=== PATIENT | male | born 1980 | race Caucasian/White ===

== ENCOUNTER 2024-12-25 22:57 | Emergency (ER) | payer OTHER, SELFPAY ==
[2024-12-25 22:59] VITALS: BP 156/110
--- NOTE | 2024-12-26 00:49 | ED.GENMED ---
History of Present Illness
General
Chief Complaint: Musculo-Skeletal Complaint
Time Seen by Provider: 12/26/24 00:49
History of Present Illness
History of Present Illness:
TIME OF INITIAL ENCOUNTER: 12:55 AM
HPI: Patient presents due to concerns of having a gout flare involving the right great toe. He is already on allopurinol is taken indomethacin as well as Tylenol. He he called his office services representative and was able to make an appointment and the plan is for
him to have a steroid injection in the morning.
EXAM
GENERAL: Well appearing in no distress
HEENT: Moist oral mucosa
NEUROLOGIC: Excellent strength all extremities, no obvious coordination deficits
PSYCHIATRIC: Appropriate mental status, normal insight and judgement
EXTREMITIES: Nontender, no edema, moves all extremities equally see below
SKIN: Some faint erythema noted to the right first MTP joint with moderate to severe tenderness, no significant warmth, no calf tenderness
NUMBER AND COMPLEXITY OF PROBLEMS ADDRESSED AT THE ENCOUNTER
� Chronic conditions affecting care: High blood pressure, gout
� Acute Exacerbation and/or Progression of Chronic Illness: This is an acute problem
� Differential Diagnosis includes: Gout, cellulitis, doubt infected joint, osteoarthritis
AMOUNT AND/OR COMPLEXITY OF DATA TO BE REVIEWED AND ANALYZED
� I performed an independent evaluation of and my interpretation is:
EKG:
CT:
X-rays:
Laboratory Studies:
Other:
� Review of other/old records: No old records available for review in [facility]
� Clinical information was obtained by an independent historian: Spoke to at bedside
� Prescriptions/Medications Considered but not given: Considered intra-articular steroid with lidocaine however the patient prefers to wait for his office services representative. I also considered and offered oral steroid but ultimately we decided
on Toradol.
� Further testing considered but not performed:
RISK OF COMPLICATIONS AND/OR MORBIDITY OR MORTALITY OF PATIENT MANAGEMENT
� Social determinants of health affecting care: Lives at home
� Discussion with other providers:
� Escalation of care including admission/observation vs risk of discharge considered: Patient was given Toradol and narcotic analgesia to help with the pain and he will see his office services representative in 7 hours.
ANY OTHER UPDATES:
Phy Exam
Physical Exam
Physical Exam:
See HPI
Course
Orders/Labs/Results
Orders:
Orders
12/26/24 01:02
Ketorolac [Toradol] 30 mg IM NOW STA
Oxycodone/Acetaminophen [Percocet 5/325] 2 tablet PO NOW STA
Vital Signs
Initial and Last Documented VS:
Initial Vital Signs
Temp Pulse Resp BP Pulse Ox
37.1 C 82 16 156/110 98
12/25/24 22:59 12/25/24 22:59 12/25/24 22:59 12/25/24 22:59 12/25/24 22:59
Last Documented Vital Signs
Temp Pulse Resp BP Pulse Ox
37.1 C 82 16 156/110 98
12/25/24 22:59 12/25/24 22:59 12/25/24 22:59 12/25/24 22:59 12/25/24 22:59
*Critical Care Note
Total Time (30-74mins, 75-104mins- exclusive of procedures): Not Applicable
ED Attending Note
-
Portions of this chart may have been created with voice recognition software.� Occasional wrong word or��sound alike� substitutions may have occurred due to the inherent limitations of voice recognition software.
Discharge Plan
Departure
Patient Disposition: Home (Routine Discharge)
Date of Disposition: 12/26/24
Time of Disposition: 01:03
Patient with high blood pressure during this ER visit?: Yes
Discharge Problem:
Gout attack
Instructions: Gout ED, BLOOD PRESSURE
Prescriptions:
New
oxycodone-acetaminophen [Percocet] 5-325 mg tablet
1 - 2 tab PO Q6HPRN PRN (Reason: pain) Qty: 10 0RF
Activity Restrictions/Additional Instructions:
We gave a shot of Toradol and some Percocet. Do not drive while on Percocet. If you continue to Percocet, take some the like MiraLAX to prevent constipation. Follow-up with your office services representative in the morning.
Interventions
Interventions:
*Risk Screen - Suicide Last Done: 12/25/24 22:59
*General Assessment Last Done: 12/25/24 22:59
*Neglect/Abuse Screening Last Done: 12/25/24 22:59
ED- Fall Risk Assessment Last Done: 12/25/24 22:59
ED-Musculoskeletal Assessment Last Done: 12/26/24 01:04
Discharge Date and Time
Print Language: THAI
[2024-12-26 01:03] VITALS: BMI 35.3
[2024-12-26] MEDS: PERCOCET 5/325 2 TABLET PO (01:14)
[2024-12-26] MEDS: TORADOL 30 MG IM (01:15)
== END 2024-12-26 01:25 | disposition home or self-care (01) ==
LOC: EMR 22:57
PROVIDERS: EMERGENCY PHYSICIAN Emergency Medicine; FAMILY PHYSICIAN Nurse Practitioner Family
DX: M10.9 Gout, unspecified (principal); Z79.899 Other long term (current) drug therapy
CPT/HCPCS: 96372; 99284